=== PATIENT | male | born 1965 | race Caucasian/White ===

== ENCOUNTER 2017-10-07 07:04 | Day surgery (SDC) | payer OTHER ==
[2017-10-07] MEDS ORDERED: Lactated Ringer's 1,000 ML IV ONE (08:02)
--- NOTE | 2017-10-07 08:04 | CP.SDSHP ---
Same Day Surgery H & P - History Proposed Procedure: COLONSCOPY Pre-Op Diagnosis: SEE NOTES - Previous Medical/Surgical History Cardiac: Hypertension Neuro: Backaches Previous Surgical History: LOWER BACK SX. - Allergies Allergies: Allergies No Known Allergies Allergy (Verified 10/07/17 07:44) - Physical Exam General Appearance: N Vital Signs: Vital Signs 10/07/17 07:32 Temperature 96.8 F L Pulse Rate 60 Respiratory 20 Rate Blood Pressure 139/96 H O2 Sat by Pulse 99 Oximetry Neuro: WNL Heart: Other Lungs: WNL GI: WNL - {Optional Preform as Required} Breast: WNL Abdomen: WNL Rectal: WNL Integument: WNL : WNL Ortho: Other ENT: WNL - Impression Pt. Evaluated Today:Candidate for Anesthesia & Procedure: Yes - Date & Time Time: 08:03 Short Stay Discharge - Short Stay Discharge Admitting Diagnosis/Reason for Visit: COLON SCREENING Disposition: HOME/ ROUTINE
[2017-10-07] MEDS ORDERED: Propofol 10 mg/ml Inj (20 ML) ONE (08:09)
[2017-10-07] MEDS ORDERED: Lactated Ringer's 500 ML IV SCH (08:15)
[2017-10-07 08:41] VITALS: TEMP 98
[2017-10-07] MEDS ORDERED: Belladonna-Phenobarbital PO ONE (08:45)
[2017-10-07 10:49] VITALS: BP 121/94; PULSE 66; RESP 12; O2SAT 97
== END 2017-10-07 10:35 | disposition home or self-care (01) ==
LOC: C.ENDO 07:04
PROVIDERS: ATTEND Specialist
DX: Z12.11 Encounter for screening for malignant neoplasm of colon (principal); I10 Essential (primary) hypertension; K64.4 Residual hemorrhoidal skin tags; K64.8 Other hemorrhoids; D12.4 Benign neoplasm of descending colon
CPT/HCPCS: 45380; 88305; J2704; J3010; J7120